=== PATIENT | female | born 2005 | race Caucasian/White ===

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

== ENCOUNTER 2024-03-07 15:18 | Emergency (ER) | payer SELFPAY ==
--- NOTE | ~2024-03-07 | XR_ITS ---
XR chest 2V DATE: 03/07/2024 15:37 INDICATION: Congestion, cough TECHNIQUE: 2 views COMPARISON: None FINDINGS: Normal heart size. No hilar or mediastinal enlargement. No pulmonary infiltrate or consolid ation, pleural effusion or pulmonary vascular congestion or pneumothorax. Included skeletal structures are unremarkable. IMPRESSION: Negative Reviewed, dictated and finalized at location A. IMPRESSION: Negative
--- NOTE | 2024-03-07 15:25 | ED_ITS ---
HPI - URI/Sore Throat General Chief Complaint: Upper Respiratory Infection Stated Complaint: Cough Time Seen by Provider: 03/07/24 15:31 Source: patient, RN notes reviewed and old records reviewed Mode of arrival: ambulatory Limitations: no limitations History of Present Illness HPI Narrative: Patient presents with complaints of cough, sore throat, subjective fever. She reports that symptoms began last week. States that she missed 5 days of work secondary to her symptoms. Is here today with a congested cough asking for a work note. She reports that cough is the only symptom that has not subsided. She denies any fever, chills, sweats. Cough is very congested-sounding, she reports that it is productive. She states that her throat no longer hurts except for when she coughs. Says she is a little more tired than normal. Otherwise no other concerns today. Related Data Home Medications Medication Instructions Recorded Confirmed No Home Medications 03/07/24 03/07/24 Allergies Allergy/AdvReac Type Severity Reaction Status Date / Time No Known Allergies Allergy Verified 03/07/24 15:18 Review of Systems Review of Systems: All systems reviewed & are unremarkable except as noted in HPI and below Constitutional: Constitutional: Reports as per HPI and Reports no additional constitutional complaints ENT: Reports system reviewed and no additional complaints, except as documented and Reports as per HPI Cardiovascular: Cardiovascular: Reports no additional cardiovascular complaints Respiratory: Respiratory: Reports as per HPI and Reports no additional respiratory complaints Gastrointestinal: Gastrointestinal: Reports no additional gastrointestinal complaints [facility] Past Medical History Medical History No pertinent past medical history Surgical History Surgical History No pertinent past surgical history Social History Social History Smoking status: Current every day smoker Tobacco type: e-cigarettes/vaping Comments At the time of my signature, I reviewed and agree with the nursing past medical, surgical, social, and family history. There is no relevant family history pertinent to the patient complaint. Exam Const: General: cooperative, no acute distress, alert and awake Orientation/consciousness: oriented to person, oriented to place and oriented to time HENMT: Head: normal to inspection Ears: TM's normal bilaterally Mouth: Yes moist mucous membranes Throat: posterior oropharynx abnormal erythema Resp: Effort & Inspection: normal respiratory effort and able to speak in complete sentences Auscultation: clear to auscultation bilaterally, no crackles, no rales, no rhonchi and no wheezes Other: Congested cough noted Cardio: Palpation: normal PMI Rate: regular rate Rhythm: regular rhythm Heart sounds: S1 normal heart sound present and S2 normal heart sound present Neuro: General: oriented to person, oriented to place and oriented to time Cranial nerves: Yes CN's II-XII intact bilaterally Psych: Appearance: grossly normal Thought process: Normal thought process present Insight: Good insight present (Psych) Judgement: Good judgement present (Psych) Course Course Level of Care: Express Care Visit Vital Signs Vital signs: Reviewed MDM - URI/Sore Throat MDM Narrative Medical decision making narrative: Patient 1 1 week of URI symptoms. Cough is congested sounding, lingering. Painful. Negative chest x-ray. Patient advised to continue with [id number] treatment. Follow up primary care provider. Emergency department for new or worse symptoms. Work note provided. Discharge instructions reviewed with patient, as well as provided in writing per nursing staff. The instructions also include specific and strict return/GO TO THE ER as well as f/u information. All questions have been answered, and the patient deny any further questions with discharge and discharge plan. Some parts of this dictation were generated by voice recognition software and may contain typographical and/or grammatical inaccuracies. Differential Diagnosis Differential diagnosis: Likely upper respiratory infection, otitis media, sinusitis, viral infection, bronchitis and other (pna) Medical Records Attestation: I reviewed the patient's medical records. Imaging Data Attestation: I personally reviewed and interpreted this imaging study as follows: My impression: negative Radiologist's impression: [facility] [address] [place] [address] XRay Report Signed Patient: Gabe Nance : 2005 MR#: [id number] Age: 19 Acct:[id number] Loc: [facility] ADM Date: 03/07/24Attending Dr: Ordering Physician: Francoise Ly FNP Date of Service: 03/07/24 Procedure(s): XR chest 2V Accession Number(s): [id number] cc: Francoise Ly FNP; Nabeel, Catracho Newman MD~ XR chest 2V DATE: 03/07/2024 15:37 INDICATION: Congestion, cough TECHNIQUE: 2 views COMPARISON: None FINDINGS: Normal heart size. No hilar or mediastinal enlargement. No pulmonary infiltrate or consolidation, pleural effusion or pulmonary vascular congestion or pneumothorax. Included skeletal structures are unremarkable. IMPRESSION: Negative Reviewed, dictated and finalized at location A. Dictated By: Kamron Toledo MD 03/07/24 1555 Signed By: <Electronically signed by Kamron Toledo MD in OV> 03/07/24 1556 Discharge Plan Discharge Clinical Impression: Viral infection Patient Disposition: Home, Self-Care Condition: Stable Instructions: Antibiotic Form, Viral Syndrome (ED) Additional Instructions: Follow-up with primary care provider. Emergency department for new or worse symptoms Prescriptions: No Action No Home Medications Follow-up/Referrals: Nabeel,Catracho Newman MD [Primary Care Provider] - 2 Weeks Stand Alone Forms: Work/School Release IP Time of Disposition: 16:03
[2024-03-07 15:28] VITALS: BP 129/73; PULSE 91; RESP 20; TEMP 37; O2SAT 99
== END 2024-03-07 16:11 | disposition home or self-care (01) ==
PROVIDERS: Emergency Provider Nurse Practitioner Family; PCP Family Medicine
DX: B34.9 Viral infection, unspecified (principal); F17.290 Nicotine dependence, other tobacco product, uncomplicated
CPT/HCPCS: 71046; 99213; G0463

== ENCOUNTER 2024-03-11 12:24 | Emergency (ER) | payer MEDICAID, SELFPAY ==
[2024-03-11 12:37] VITALS: BP 114/74; PULSE 89; RESP 18; TEMP 37.1; O2SAT 100
--- NOTE | 2024-03-11 12:49 | ED_ITS ---
HPI - Ear Problem General Chief complaint: Ear Stated complaint: Ears Irritation Time Seen by Provider: 03/11/24 12:49 Source: patient, RN notes reviewed and old records reviewed Mode of arrival: ambulatory Limitations: no limitations History of Present Illness HPI Narrative: 19-year-old female presents to the [facility] with complaints of bilateral ear pain that started yesterday. States that she put ear drops in her ears. Denies any other symptoms Related Data Allergies Allergy/AdvReac Type Severity Reaction Status Date / Time No Known Allergies Allergy Verified 03/11/24 12:43 Review of Systems Review of Systems: All systems reviewed & are unremarkable except as noted in HPI and below Constitutional: Constitutional: Reports no additional constitutional complaints ENT: Reports as per HPI Cardiovascular: Cardiovascular: Reports no additional cardiovascular complaints, Denies chest pain and Denies dyspnea Respiratory: Respiratory: Reports no additional respiratory complaints, Denies chest congestion, Denies cough and Denies dyspnea Gastrointestinal: Gastrointestinal: Reports no additional gastrointestinal complaints, Denies abdominal pain, Denies nausea and Denies vomiting Musculoskeletal: Musculoskeletal: Reports no additional musculoskeletal complaints Integumentary/Breasts: Skin/Breast: Reports system reviewed and no additional complaints, except as docu PMFSH Past Medical History Medical History No pertinent past medical history Surgical History Surgical History No pertinent past surgical history Social History Social History Smoking status: Current every day smoker Tobacco type: e-cigarettes/vaping Comments At the time of my signature, I reviewed and agree with the nursing past medical, surgical, social, and family history. There is no relevant family history pertinent to the patient complaint. Exam Const: General: cooperative, healthy appearing, comfortable, no acute distress, well developed, alert and well nourished Nutritional Appearance: well nourished Orientation/consciousness: patient oriented x3 Limitations: no limitations HENMT: Head: normal to inspection Ears: hearing grossly normal bilaterally, external ears normal, Abnormal EAC present erythema bilateral, edema on the left and EAC tenderness bilateral; no foreign body and no otic discharge and TM abnormal erythematous on the left Face/Nose/Sinus: Normal external nose present, normal facial exam and face symmetric Face and sinus: normal facial exam and face symmetric Mouth: Yes Normal oral and palatal mucosa present, Yes lip normal and Yes tongue normal Throat: posterior oropharynx normal, uvula midline and no uvular edema Eyes: General: appearance normal, both eyes and all related structures Alignment and Position: alignment normal Periorbital: periorbital findings normal Neck: Neck: normal visual inspection, full ROM, no lymphadenopathy and no meningeal signs Chest: Chest palpation & inspection: normal inspection of the chest Resp: Effort & Inspection: normal respiratory effort and able to speak in complete sentences Auscultation: clear to auscultation bilaterally, no crackles, no rales, no rhonchi and no wheezes Cardio: Rate: regular rate Skin: General skin exam: normal color and no rashes or lesions noted L esions: no lesions Rashes: no rashes Wounds: no wounds Neuro: General: patient oriented x3, gait normal, tone normal, moves all extremities and no meningeal signs Cognition (Neuro): normal cognition Speech: normal speech Gait exam (Neuro): Normal gait present Extrem: General: normal to inspection, full ROM, capillary refill normal and normal gait Psych: Appearance: grossly normal and well kempt Mental Status: mental status grossly normal Speech and movement: Normal speech and movement present and Clear speech present Affect: normal affect Attitude: cooperative Course Course Level of Care: Express Care Visit Vital Signs Vital signs: Vital Signs Temperature 98.8 F 03/11/24 12:37 Pulse Rate 89 03/11/24 12:37 Respiratory Rate 18 03/11/24 12:37 Blood Pressure 114/74 03/11/24 12:37 Pulse Oximetry 100 03/11/24 12:37 Oxygen Delivery Room Air 03/11/24 12:37 Temperature 98.8 F 03/11/24 12:37 Pulse Rate 89 03/11/24 12:37 Respiratory Rate 18 03/11/24 12:37 Blood Pressure 114/74 03/11/24 12:37 Pulse Oximetry 100 03/11/24 12:37 Oxygen Delivery Room Air 03/11/24 12:37 Reviewed Medical Decision Making MDM Narrative Medical decision making narrative: Patient sitting comfortably in exam room. Nontoxic, vitals stable. Patient in no acute distress Patient presents for ear pain. Erythema noted to the left TM. Bilateral ear canal redness with mild inflammation Patient appropriate for outpatient treatment with antibiotics and close follow- up. Discharge instructions reviewed with patient, as well as provided in writing per nursing staff. The instructions also include specific and strict return/GO TO THE ER as well as f/u information. All questions have been answered, and the patient deny any further questions with discharge and discharge plan. Some parts of this dictation were generated by voice recognition software and may contain typographical and/or grammatical inaccuracies. Differential Diagnosis Differential Diagnosis: Otitis media, URI, otitis externa, serous otitis Medical Records Medical records reviewed: Yes I reviewed the external patient's medical records. Vital Signs Vital Signs: Vital Signs Temperature 98.8 F 03/11/24 12:37 Pulse Rate 89 03/11/24 12:37 Respiratory Rate 18 03/11/24 12:37 Blood Pressure 114/74 03/11/24 12:37 Pulse Oximetry 100 03/11/24 12:37 Oxygen Delivery Room Air 03/11/24 12:37 Temperature 98.8 F 03/11/24 12:37 Pulse Rate 89 03/11/24 12:37 Respiratory Rate 18 03/11/24 12:37 Blood Pressure 114/74 03/11/24 12:37 Pulse Oximetry 100 03/11/24 12:37 Oxygen Delivery Room Air 03/11/24 12:37 Reviewed Lab Data Lab results reviewed: Yes I reviewed the patient's lab results. Labs: Reviewed Critical Care Time Critical Care Time Critical Care Time: No Discharge Plan Discharge Clinical Impression: Acute left otitis media Bilateral otitis externa Qualifiers: Otitis externa type: unspecified type Chronicity: acute Qualified Code(s): H60.503 - Unspecified acute noninfective otitis externa, bilateral Patient Disposition: Home, Self-Care Condition: Stable Instructions: Antibiotic Form, Ear Infection (AC) Additional Instructions: Take Motrin alternating with Tylenol as needed for pain Take antibiotic as needed for the left ear infection Use the ear drops as prescribed Follow-up with primary care provider this week If you are having a hard time finding a physician please call our [facility] group liaison at [phone]. For new or worsening symptoms go directly to the emergency room Patient Language: British Prescriptions: New ofloxacin 0.3 % drops 5 drp EACH EAR BID 7 Days Qty: 10 0RF amoxicillin 875 mg tablet 875 mg PO Q12H Qty: 20 0RF Follow-up/Referrals: PHYSICIAN,OUTCOMES MANAGER [Primary Care Provider] - Stand Alone Forms: Work/School Release IP Time of Disposition: 12:59
== END 2024-03-11 13:03 | disposition home or self-care (01) ==
PROVIDERS: Emergency Provider Nurse Practitioner
DX: H66.92 Otitis media, unspecified, left ear (principal); H60.503 Unspecified acute noninfective otitis externa, bilateral; F17.290 Nicotine dependence, other tobacco product, uncomplicated
CPT/HCPCS: 99213; G0463

== ENCOUNTER 2024-10-13 12:15 | Emergency (ER) | payer BC, SELFPAY ==
--- NOTE | 2024-10-13 12:19 | ED_ITS ---
HPI - Abdominal Pain General Chief Complaint: Abdominal Pain Stated Complaint: abdomen pain Time Seen by Provider: 10/13/24 12:18 Source: patient Mode of arrival: ambulatory Limitations: no limitations History of Present Illness HPI narrative: Patient is a 19-year-old female presenting with complaint of abdominal pain. Patient reports generalized abdominal pain beginning on Friday. Reports history of same pain on countless occasions for years. Unable to identify any precipitating factors. Denies any change in bowel habits. No dietary changes. Denies any nausea, vomiting. No previous abdominal surgeries. No treatment initiated prior to arrival. No symptoms. No constitutional symptoms. P.o. intake today includes biscuits and gravy. No additional complaints. Related Data Home Medications ?Medication ?Instructions ?Recorded ?Confirmed ?Last Taken ?Type No Home Medications 10/13/24 10/13/24 Unknown History Allergies Allergy/AdvReac Type Severity Reaction Status Date / Time No Known Allergies Allergy Verified 10/13/24 12:27 Review of Systems Review of Systems: CONSTITUTIONAL: Denies body aches, fever, chills, or sweats. EYES: Denies visual changes, redness, or discharge. ENT: Denies rhinorrhea, congestion, sore throat, or otalgia. CARDIOVASCULAR: Denies chest pain, palpitations, or edema. RESPIRATORY: Denies cough or dyspnea. GASTROINTESTINAL: Denies nausea, vomiting, or diarrhea. GENITOURINARY: Denies dysuria or hematuria. SKIN: Denies rash, itching, or wounds. MUSCULOSKELETAL: Denies back pain, joint pain, or myalgia. NEUROLOGIC: Denies headache, numbness, tingling, or weakness. PSYCH: Denies depression or anxiety. All systems reviewed & are unremarkable except as noted in HPI and below PMFSH Past Medical History Medical History No pertinent past medical history Surgical History Surgical History No pertinent past surgical history Social History Social History Smoking status: Current every day smoker Tobacco type: e-cigarettes/vaping Exam Narrative: GENERAL: Well-appearing, well-nourished, and in no acute distress. HEAD: Normocephalic, atraumatic. EYES: EOMI. No redness or drainage. Conjunctivae normal. ENT: Mucous membranes pink and moist. Nares clear. No rhinorrhea. TMs normal bilaterally. Throat normal. Uvula midline. NECK: Normal AROM. Supple. No lymphadenopathy. CHEST: No respiratory distress. Clear to auscultation. HEART: Regular rate and rhythm. No murmur appreciated. Normal peripheral pulses. ABDOMEN: Soft, nontender, nondistended, normal active bowel sounds. MUSCULOSKELETAL: No bony tenderness. EXTREMITIES: Normal range of motion. No edema. SKIN: Warm, dry, no rash. Capillary refill normal. Normal skin turgor. NEURO: No focal deficits. Alert and oriented x3. Gait steady. PSYCH: Normal affect. No signs of depression or anxiety. Const: Nutritional Appearance: obese GI: GI Palp: Yes Soft to palpation, No Tenderness to palpation present (GI), No Guarding due to palpation present (GI), No Rigid due to palpation, No Palpable mass present and No Rebound tenderness present Auscultation: normal bowel sounds Back/Spine/Pelvis: Back: no CVA tenderness Course Course Level of Care: Express Care Visit Vital Signs Vital signs: Vital Signs Temperature 97.7 F 10/13/24 12:24 Pulse Rate 86 10/13/24 12:24 Respiratory Rate 16 10/13/24 12:24 Blood Pressure 138/75 10/13/24 12:24 Pulse Oximetry 100 10/13/24 12:24 Oxygen Delivery Room Air 10/13/24 12:24 Temperature 97.7 F 10/13/24 12:24 Pulse Rate 86 10/13/24 12:24 Respiratory Rate 16 10/13/24 12:24 Blood Pressure 138/75 10/13/24 12:24 Pulse Oximetry 100 10/13/24 12:24 Oxygen Delivery Room Air 10/13/24 12:24 MDM - Abdominal Pain Differential Diagnosis Differential diagnosis: Likely abdominal pain, acute appendicitis, calculus of kidney, constipation, diverticulitis, gastroenteritis, pancreatitis and small bowel obstruction Medical Records Attestation: I reviewed the patient's medical records. Discharge Plan Discharge Clinical Impression: Generalized abdominal pain Patient Disposition: Home Condition: Stable Instructions: Abdominal Pain (ED) Additional Instructions: Keep a food diary that includes what you consume as well as how your body reacts to the food/beverage. Go straight to ER should your symptoms become worse or should any new symptoms develop Patient Language: Amharic Prescriptions: No Action No Home Medications Follow-up/Referrals: PHYSICIAN,INSURANCE UNDERWRITER SALES [Primary Care Provider] - Jd Mahajan MD [Physician] - 10/13/24 Time of Disposition: 12:32
[2024-10-13 12:24] VITALS: BP 138/75; PULSE 86; RESP 16; TEMP 36.5; O2SAT 100
== END 2024-10-13 12:38 | disposition home or self-care (01) ==
PROVIDERS: Emergency Provider Registered Nurse
DX: R10.84 Generalized abdominal pain (principal); F17.290 Nicotine dependence, other tobacco product, uncomplicated
CPT/HCPCS: 99211; G0463